=== PATIENT | female | born 1975 | race Caucasian/White ===

== ENCOUNTER 2022-10-10 07:24 | Day surgery (SDC) | payer OTHER ==
[2022-10-09 14:34] LABS: COVID AG,FIA SOURCE NASAL SWAB
[~2022-10-10] VITALS: Ht 157.5 cm; Wt 87.2 kg
[~2022-10-10 07:24] MED LIST: PHEN15CA61 PO; SODIUM CHLORIDE 0.9% 1,000 ML ONE
[2022-10-10] MEDS ORDERED: LIDOCAINE/PF 2% 5 ML VIAL IM ONE (07:25)
[2022-10-10] MEDS ORDERED: PROPOFOL 1% 20 ML VIAL IVP ONE (07:25)
[2022-10-10] MEDS ORDERED: SODIUM CHLORIDE 0.9% 1,000 ML IV ONE (09:00)
== END 2022-10-10 10:55 | disposition home or self-care (01) ==
LOC: SURGERY 07:24
PROVIDERS: ATTEND Internal Medicine Gastroenterology
DX: K64.0 First degree hemorrhoids (principal); E78.00 Pure hypercholesterolemia, unspecified; E66.3 Overweight; Z98.890 Other specified postprocedural states; Z20.822 Contact with and (suspected) exposure to COVID-19
CPT/HCPCS: 87426; 84703; 45378; C9803; J2704; J3490; J7030